=== PATIENT | male | born 1965 | race Native Hawaiian/Other Pacific Islander ===

== ENCOUNTER → 2018-03-06 | Outpatient (CLI) | payer OTHER | LOC: RAD 13:44 | DX: M25.769 Osteophyte, unspecified knee (principal); G89.29 Other chronic pain; M25.561 Pain in right knee; M25.562 Pain in left knee ==

== ENCOUNTER → 2021-04-25 | Outpatient (CLI) | payer OTHER | LOC: RAD 11:54 | PROVIDERS: ATTEND Family Medicine | DX: M25.762 Osteophyte, left knee (principal); M20.11 Hallux valgus (acquired), right foot ==